=== PATIENT | female | born 2005 | race Caucasian/White ===

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

== ENCOUNTER 2024-08-30 12:35 | Emergency (ER) | payer BC ==
[2024-08-30 13:54] LABS: Specific Gravity 1.017 (1.005-1.030)
[2024-08-30 13:58] LABS: Specific Gravity 1.017 (1.005-1.030); Urine Bacteria None Seen /HPF (<20); Urine Bilirubin NEGATIVE (Negative); Urine Blood 1+ (Negative); Urine Clarity Extremely Turbid (Clear); Urine Color Yellow (Yellow); Urine Culture Reflex Order NOT NEEDED; Urine Glucose NEGATIVE (Negative); Urine Ketones 1+ (Negative); Urine Microscopic Reflex YN ORDER UMIC; Urine Mucus 3+ /HPF (None Seen); Urine Nitrite NEGATIVE (Negative); Urine Protein TRACE (Negative); Urine RBC <5 /HPF (None Seen); Urine Urobilinogen Normal (Normal); Urine WBC <5 /HPF (<5); Urine WBC Clump Rare /HPF (None Seen); Urine Yeast (Budding) Trace /HPF (None Seen)
[2024-08-30 14:05] LABS: Albumin 4.2 g/dL (3.4-5.0); Albumin/Globulin Ratio 1.3 (1.1-1.8); Anion Gap 7.3 mEq/L (5.0-15.0); Bilirubin Total 0.8 mg/dL (0.2-1.0); Globulin 3.3 g/dL (2.3-3.5); Potassium 3.3 mEq/L (3.5-5.1); Protein, Total 7.5 g/dL (6.4-8.2)
[2024-08-30 14:06] LABS: Absolute Lymphocytes (CBC) 2.2 K/uL (0.7-4.9); Absolute Monocytes 0.6 K/uL (0.1-1.3); Basophils % 0.5 % (0-1.3); Eosinophils % 0.8 % (0-4.4); Hematocrit 42.6 % (36.0-45.0); Hemoglobin 14.5 g/dL (12.0-15.0); Lymphocytes % 37.5 % (15.3-44.8); MCH 30.5 pg (27.0-35.0); MCHC 33.9 g/dL (32.0-36.0); MCV 89.8 fL (80-100); MPV 9.5 fL (7.6-11.3); Monocytes % 10.3 % (3.3-12.3); Neutrophils % 50.9 % (41.7-73.7); Nucleated Red Blood Cells % 0.1 % (0-0); Platelets 213 thou/uL (152-406); RBC Red Blood Cell Count 4.74 M/uL (3.86-4.86); Red Cell Distribution Width 13.2 % (12.1-15.2)
[2024-08-30] MEDS ORDERED: HYDROCODONE/APAP 5/325 MG TAB ONE (14:13)
--- NOTE | 2024-08-30 14:27 | ER ---
Nurse's Notes [facility] Name: Suzie Delarosa Age: 18 yrs Sex: Female : 2005 Arrival Date: 08/30/2024 Time: 12:35 Bed 16 Private MD: Diagnosis: Flank pain;Hypokalemia Presentation: 08/30 12:51 Chief complaint: Patient states: L sided abdominal pain and L haider/hip pain for 3-4 ll1 days. Seen at [facility] at 2 AM. Coronavirus screen: Client denies travel out of the [place] in the last 14 days. At this time, the client does not indicate any symptoms associated with coronavirus-19. Ebola Screen: Patient denies travel to an Ebola-affected area in the 21 days before illness onset. Initial Sepsis Screen: Does the patient meet any 2 criteria? No. Patient's initial sepsis screen is negative. Does the patient have a suspected source of infection? No. Patient's initial sepsis screen is negative. Risk Assessment: Do you want to hurt yourself or someone else? Patient reports no desire to harm self or others. Onset of symptoms was August 27, 2024. 12:51 Method Of Arrival: Ambulatory ll1 12:51 Acuity: JUNIOR 3 ll1 Triage Assessment: 12:52 General: Appears uncomfortable, Behavior is calm, cooperative, appropriate for age. ll1 Pain: Complains of pain in abdomen Pain radiates to back Pain currently is 10 out of 10 on a pain scale. Quality of pain is described as aching. GI: Reports lower abdominal pain. Musculoskeletal: Reports pain in back and L hip. Historical: - Allergies: 12:50 Augmentin; ll1 12:50 oral morphine; ll1 12:50 Amoxicillin; ll1 - PMHx: 12:50 Anxiety; gastroporesis; insomnia; SVT; tourette's syndrome; ll1 - PSHx: 12:50 J tube; ll1 - Immunization history:: Adult Immunizations up to date. - Infectious Disease History:: Denies. - Social history:: Smoking status: Patient reports the use of cigarette tobacco products, denies chronic smoking, but will smoke occasionally, Reported history of juuling and/or vaping. Screenin:41 [facility] ED Fall Risk Assessment (Adult) History of falling in the last 3 months, tm6 including since admission No falls in past 3 months (0 pts) Confusion or Disorientation No (0 pts) Intoxicated or Sedated No (0 pts) Impaired Gait No (0 pts) Mobility Assist Device Used No (0 pt) Altered Elimination No (0 pt) Score/Fall Risk Level 0 - 2 = Low Risk Oriented to surroundings, Maintained a safe environment, Educated pt \T\ family on fall prevention, incl call for assistance when getting out of bed. Abuse screen: Denies threats or abuse. Denies injuries from another. Nutritional screening: No deficits noted. Tuberculosis screening: No symptoms or risk factors identified. Assessment: 13:41 General: Appears in no apparent distress. Behavior is calm, cooperative. Pain: tm6 Complains of pain in back and left lower quadrant Pain currently is 10 out of 10 on a pain scale. Neuro: Level of Consciousness is awake, alert, obeys commands, Oriented to person, place, time, situation. Cardiovascular: Patient's skin is warm and dry. Respiratory: Airway is patent Respiratory effort is even, unlabored, Respiratory pattern is regular, symmetrical. GI: Abdomen is flat, non-distended, Bowel sounds present X 4 quads. Abd is soft and non tender Reports lower abdominal pain. : No signs and/or symptoms were reported regarding the genitourinary system. EENT: No signs and/or symptoms were reported regarding the EENT system. Derm: No signs and/or symptoms reported regarding the dermatologic system. Musculoskeletal: Reports pain in back. 14:53 Reassessment: Patient and/or family updated on plan of care and expected duration. Pain tm6 level reassessed. Patient is alert, oriented x 3, equal unlabored respirations, skin warm/dry/pink. Vital Signs: 12:51 BP 107 / 72; Pulse 54; Resp 17; Temp 97.2; Pulse Ox 100% on R/A; Weight 39.46 kg; ll1 Height 5 ft. 2 in. ; Pain 10/10; 14:52 BP 112 / 71; Pulse 72; Resp 18; Temp 97.2; Pulse Ox 99% on R/A; MAP 83 mmHg; Pain 5/10; tm6 12:51 Body Mass Index 15.91 (39.46 kg, 157.48 cm) - Percentile 0.1 % ll1 12:51 Pain Scale: Adult ll1 14:52 Pain Scale: Adult tm6 ED Course: 12:38 Patient arrived in ED. sj2 12:40 Neno Pearl DO is Attending Physician. ec2 12:50 Arm band placed on Patient placed in an exam room, on a stretcher. ll1 12:52 Triage completed. ll1 13:15 Rahat Matias, RN is Primary Nurse. tm6 13:41 Patient has correct armband on for positive identification. Bed in low position. Call tm6 light in reach. Side rails up X 1. Provided Education on: use of call barber. Client placed on continuous cardiac and pulse oximetry monitoring. NIBP monitoring applied. threat monitoring analyst on. Pulse ox on. NIBP on. Door closed. Noise minimized. 13:43 Initial lab(s) drawn, by me, sent to lab. Urine collected: clean catch specimen. ph Inserted saline lock: 22 gauge in left wrist, using aseptic technique. Blood collected. Flushed with 10 mL NS. 13:43 CBC with Diff Sent. ph 13:44 CMP Sent. ph 13:44 Test, Urine Sent. ph 13:44 Urinalysis w/ reflexes Sent. ph 14:25 Amarjit Recinos DO is Referral Physician. ms3 15:11 No provider procedures requiring assistance completed. IV discontinued, intact, tm6 bleeding controlled, No redness/swelling at site. Pressure dressing applied. Administered Medications: 14:18 Drug: HYDROcodone-acetaminophen PO 5 mg-325 mg 1 tabs PO once Route: PO; tm6 14:41 Follow up: Response: No adverse reaction tm6 15:02 Drug: Fluconazole PO 150 mg PO once Route: PO; tm6 15:12 Follow up: Response: Medication administered at discharge. tm6 15:02 Drug: Potassium Chloride PO 40 mEq PO once Route: PO; tm6 15:12 Follow up: Response: Medication administered at discharge. tm6 Medication: 13:41 VIS not applicable for this client. tm6 Outcome: 14:26 Discharge ordered by . ms3 15:11 Discharged to home ambulatory, with family, tm6 15:11 Condition: stable 15:11 Discharge instructions given to patient, family, Instructed on discharge instructions, follow up and referral plans. Demonstrated understanding of instructions, follow-up care, 15:12 Patient left the ED. tm6 Signatures: Geraldine Harris RN RN ph Ammy Monroy RN RN ll1 Neno Pearl, DO DUNHAM ms3 Luiz Monteiro MD MD ec2 Rahat Matias RN RN tm6 Kendal Anders 2
--- NOTE | 2024-08-30 14:27 | EDPHYS ---
Physician Documentation [facility] Name: Suzie Delarosa Age: 18 yrs Sex: Female : 2005 Arrival Date: 08/30/2024 Time: 12:35 Bed 16 Private MD: ED Physician Neno Pearl HPI: 08/30 14:21 This 18 yrs old Female presents to ER via Ambulatory with complaints of Abdominal Pain, ms3 Hip Pain, Back Pain. 14:21 Suzie Delarosa presents to the Emergency Department with a 3 to 4-day history of pain ms3 starting from the left side near the ribs and radiating down to the hip. She reports experiencing chills and low-grade fevers of 99 farenheit. Earlier today, she visited [facility] ER, where she underwent a CT scan without contrast. However, she states these medications are not alleviating her symptoms. Suzie has a neurological history, including Tourette's syndrome, bipolar disorder, and mild schizophrenia.. Historical: - Allergies: 12:50 Augmentin; ll1 12:50 oral morphine; ll1 12:50 Amoxicillin; ll1 - PMHx: 12:50 Anxiety; gastroporesis; insomnia; SVT; tourette's syndrome; ll1 - PSHx: 12:50 J tube; ll1 - Immunization history:: Adult Immunizations up to date. - Infectious Disease History:: Denies. - Social history:: Smoking status: Patient reports the use of cigarette tobacco products, denies chronic smoking, but will smoke occasionally, Reported history of juuling and/or vaping. ROS: 14:23 Constitutional: Negative for fever, and chills. Cardiovascular: Negative for chest ms3 pain, and palpitations. Respiratory: Negative for shortness of breath, cough, wheezing, and pleuritic chest pain, Abdomen/GI: Negative for abdominal pain, nausea, vomiting, diarrhea, and constipation, 14:23 Skin: Negative for injury, rash, and discoloration, 14:23 Back: Positive for flank pain, on the left, Exam: 14:23 Constitutional: This is a well developed, well nourished patient who is awake, alert, ms3 and in no acute distress. Head/Face: Normocephalic, atraumatic. Chest/axilla: Normal chest wall appearance and motion. Nontender with no deformity. Cardiovascular: Regular rate and rhythm with a normal S1 and S2. No gallops, murmurs, or rubs. Normal PMI, no JVD. No pulse deficits. Respiratory: Lungs have equal breath sounds bilaterally, clear to auscultation and percussion. No rales, rhonchi or wheezes noted. No increased work of breathing, no retractions or nasal flaring. Abdomen/GI: Soft, non-tender, with normal bowel sounds. No distension or tympany. No guarding or rebound. No evidence of tenderness throughout. 14:23 Skin: Warm, dry with normal turgor. Normal color with no rashes, no lesions, and no evidence of cellulitis. 14:23 Back: pain, that is moderate, CVA tenderness, that is moderate, is noted on the left, Vital Signs: 12:51 BP 107 / 72; Pulse 54; Resp 17; Temp 97.2; Pulse Ox 100% on R/A; Weight 39.46 kg; ll1 Height 5 ft. 2 in. ; Pain 10/10; 14:52 BP 112 / 71; Pulse 72; Resp 18; Temp 97.2; Pulse Ox 99% on R/A; MAP 83 mmHg; Pain 5/10; tm6 12:51 Body Mass Index 15.91 (39.46 kg, 157.48 cm) - Percentile 0.1 % ll1 12:51 Pain Scale: Adult ll1 14:52 Pain Scale: Adult tm6 MDM: 12:51 Medical Screening Exam initiated ms3 14:20 ED course: Reviewed patient's CT abdomen pelvis without contrast results from 3:56 AM ms3 this morning at [facility]. CT abdomen pelvis is without abnormalities.. 14:23 Differential diagnosis: Kidney stone vs Pyelonephritis vs Viral Syndrome vs MSK pain. ms3 Data reviewed: vital signs, nurses notes, lab test result(s), and as a result, I will discharge patient. I considered the following discharge prescriptions or medication management in the emergency department Medications were administered in the Emergency Department. See MAR. External Records Reviewed: Outside ED record: [facility] CT abdomen/ pelvis without contrast report negative acute. Counseling: I had a detailed discussion with the patient and/or guardian regarding the historical points, exam findings, and any diagnostic results supporting the discharge/admit diagnosis, lab results, the need for outpatient follow up, to return to the emergency department if symptoms worsen or persist or if there are any questions or concerns that arise at home. Special discussion: I discussed with the patient/guardian in detail that at this point there is no indication for admission to the hospital. It is understood, however, that if the symptoms persist or worsen the patient needs to return immediately for re-evaluation. ED course: Discussed CT from [facility] and labs with patient. Patient to follow-up with primary care physician in 2 to 3 days. Patient understands and agrees with plan. All questions were answered. Return precautions discussed include worsening symptoms, or any other concerns.. 08/30 12:51 Order name: CBC with Diff; Complete Time: 14:11 ms3 08/30 12:51 Order name: CMP; Complete Time: 14:11 ms3 08/30 12:51 Order name: Test, Urine; Complete Time: 14:11 ms3 08/30 12:51 Order name: Urinalysis w/ reflexes; Complete Time: 14:11 ms3 08/30 12:51 Order name: IV Saline Lock; Complete Time: 13:41 ms3 08/30 12:51 Order name: Labs collected and sent; Complete Time: 13:41 ms3 Administered Medications: 14:18 Drug: HYDROcodone-acetaminophen PO 5 mg-325 mg 1 tabs PO once Route: PO; tm6 14:41 Follow up: Response: No adverse reaction tm6 15:02 Drug: Fluconazole PO 150 mg PO once Route: PO; tm6 15:12 Follow up: Response: Medication administered at discharge. tm6 15:02 Drug: Potassium Chloride PO 40 mEq PO once Route: PO; tm6 15:12 Follow up: Response: Medication administered at discharge. tm6 Disposition Summary: 08/30/24 14:26 Discharge Ordered Notes: Location: Home ms3 Condition: Stable ms3 Diagnosis - Flank pain ms3 - Hypokalemia ms3 Followup: ms3 - With: Amarjit Recinos, DO - When: 2 - 3 days - Reason: Recheck today's complaints Discharge Instructions: - Discharge Summary Sheet ms3 - Potassium Content of Foods ms3 - Flank Pain, Adult, [id number] ms3 - Hypokalemia ms3 Forms: - Medication Reconciliation Form ms3 - Antibiotic Education ms3 - Prescription Opioid Use ms3 - Patient Portal Instructions ms3 - Leadership Thank You Letter ms3 - Work release form tm6 Signatures: Dispatcher [employer] Ammy Odonnell, RN RN ll1 Neno Pearl DO DO ms3 Rahat Matias, RN RN tm6
[2024-08-30] MEDS ORDERED: POTASSIUM CL SA 10 MEQ TAB PO ONE (14:46)
[2024-08-30] MEDS ORDERED: FLUCONAZOLE 100 MG TAB ONE (14:46)
[2024-08-30 16:41] VITALS: BP 107/72; TEMP 97.2; O2SAT 100
== END 2024-08-30 15:12 | disposition home or self-care (01) ==
LOC: ER 12:35
DX: R10.9 Unspecified abdominal pain (principal); E87.6 Hypokalemia; F17.210 Nicotine dependence, cigarettes, uncomplicated
CPT/HCPCS: 36415; 80053; 81001; 81025; 85025; 99284